=== PATIENT | female | born 1950 | race Caucasian/White ===

== ENCOUNTER → 2016-08-03 | Outpatient (CLI) | payer MEDICARE, OTHER ==
--- NOTE | ~2016-08-03 | MY11 ---
[facility] A Service of [facility] RADIOLOGY TEXT RESULTS PATIENT: SOLEDAD EVANS LOCATION: [facility] : 48 UNIT #: [id number] AGE: [address]: NEWTON CHAND MD SEX: F ORDER DR: [id number] [facility] [address] [place], [place] [address] [id number] O MR#: [id number] Acc #: [id number] NAME: SOLEDAD EVANS : 1950 SEX: F STUDY DATE/TIME: 08/03/2016 10:37 UNIT: [facility] ROOM: STUDY DESCRIPTION: MY Mammogram Screening Dig Rick Attending Physician: Newton Chand M.D. Ordering Physician: Newton Chand M.D. Primary Care Physician: Newton Chand M.D. MEDICAL IMAGING REPORT This report is preliminary unless electronic signature is present EXAM Digital screening mammogram, 08/03/2016 HISTORY 65-year-old woman family history of ovarian cancer in mother. Annual screening. COMPARISON Mammograms date to 11/24/2005 with most recent screening comparison 05/22/2015. FINDINGS Digital imaging of each breast was completed utilizing screening protocol. Review includes FDA-approved CAD device. Breast parenchyma is fatty replaced. I see no interval occurring breast mass. There are no suspicious microcalcifications and no architectural deformity. IMPRESSION Negative mammogram. Annual screening recommended. Patients over the age of 40 are entered into a reminder system with target due date for the next mammogram. A result letter will also be sent to the patient. BIRADS: 1 Negative Dictated by... Alf Naylor M.D. THIS IS AN ELECTRONICALLY VERIFIED REPORT Alf Naylor M.D. at 08/03/2016 3:57 PM YULIA/alexa [facility] A Service of [facility] RADIOLOGY TEXT RESULTS PATIENT: SOLEDAD EVANS LOCATION: [facility] : 48 UNIT #: [id number] AGE: [address]: NEWTON CHAND MD SEX: F ORDER DR: TD: 08/03/2016 14:36 JOB #: [id number] MEDICAL IMAGING REPORT COPY
== END | disposition home or self-care (01) ==
LOC: CWCC 10:03
DX: Z12.31 Encounter for screening mammogram for malignant neoplasm of breast (principal); Z80.41 Family history of malignant neoplasm of ovary
CPT/HCPCS: G0202